=== PATIENT | female | born 1980 | race Caucasian/White ===

== ENCOUNTER → 2021-04-24 | Day surgery (SDC) | payer OTHER ==
[~2021-04-24] VITALS: Ht 157.5 cm; Wt 77.1 kg
[~2021-04-24] MED LIST: ACETAMINOPHEN500 M1 PO; BRIN10TA PO; COLACE100 MG PO; MIRALAX17 GM PO; MOTRIN600 MG PO; NORCO 5-325 TA1 EACH PO; OXY-IR 5MG5 MG PO; VENTOLIN HFA IN18 GM INH
== END | disposition home or self-care (01) ==
LOC: FAS 07:05
DX: Z12.11 Encounter for screening for malignant neoplasm of colon (principal); A63.0 Anogenital (venereal) warts; K29.80 Duodenitis without bleeding; K29.70 Gastritis, unspecified, without bleeding; K31.9 Disease of stomach and duodenum, unspecified; F31.89 Other bipolar disorder; G43.709 Chronic migraine without aura, not intractable, without status migrainosus; M51.36 Other intervertebral disc degeneration, lumbar region; F17.210 Nicotine dependence, cigarettes, uncomplicated; Z80.0 Family history of malignant neoplasm of digestive organs; Z88.8 Allergy status to other drugs, medicaments and biological substances
CPT/HCPCS: 43239; 46924; G0105; 84703; J0690; J1100; J1644; J2250; J2405; J2704; J2710; J3010; J7120

== ENCOUNTER 2021-05-23 10:45 | Emergency (ER) | payer OTHER ==
[2021-05-23 11:31] LABS: BILIRUBIN NEGATIVE (NEGATIVE); BLOOD NEGATIVE Ery/uL (NEGATIVE); CLARITY CLEAR (CLEAR); COLOR YELLOW (YELLOW); GLUCOSE (U) NORMAL (NORMAL); LEUKOCYTES NEGATIVE Leu/uL (NEGATIVE); NITRITE NEGATIVE (NEGATIVE); PROTEIN NEGATIVE (NEGATIVE); SPECIFIC GRAVITY 1.015 (1.001-1.030); UROBILINOGEN 0.2 mg/dL (0.2-1.0)
[2021-05-23 11:33] LABS: AMPHETAMINES NEGATIVE (NEGATIVE); BARBITURATES NEGATIVE (NEGATIVE); ECSTASY (MDMA) NEGATIVE (NEGATIVE); MARIJUANA (THC) NEGATIVE (NEGATIVE); METHADONE NEGATIVE (NEGATIVE); OPIATES NEGATIVE (NEGATIVE); OXYCODONE NEGATIVE (NEGATIVE)
[2021-05-23 11:33] LABS: BASOPHIL 0.5 % (0-2); EOSINOPHIL 0.9 % (0-5); HCT 45.1 % (37.0-47.0); HGB 14.9 g/dl (12.5-16.0); LYMPHOCYTE 31.1 % (15-48); MCV 87.9 fL (78.0-100.0); MONOCYTE 4.5 % (0-12); NEUTROPHIL 62.8 % (41-80); NRBC 0; PLT 283 K/uL (150-400); RBC 5.13 M/uL (4.20-5.40); RDW 13.3 % (11.5-14.0); WBC 9.5 K/uL (4.0-10.5)
[2021-05-23 11:50] LABS: ALBUMIN 3.6 g/dL (3.4-5.0); BILIRUBIN - TOTAL 0.5 mg/dL (0.2-1.0); BUN/CREAT RATIO (CALC) 10.7 RATIO; CREATININE 0.84 mg/dL (0.51-0.95); GLOBULIN (CALCULATION) 3.9 g/dL; POTASSIUM 3.8 mmol/L (3.5-5.1); TOTAL PROTEIN 7.5 g/dL (6.4-8.2)
[2021-05-23 12:45] LABS: CORONAVIRUS 2019 SARS-COV-2 NEGATIVE (NEGATIVE); INFLUENZA A NAA NEGATIVE (NEGATIVE)
[2021-05-23] MEDS ORDERED: DICYCLOMINE HCL20 MG PO (12:47)
[2021-05-23] MEDS ORDERED: ONDANSETRON ODT4 MG PO (12:49)
== END 2021-05-23 13:10 | disposition home or self-care (01) ==
LOC: FER 10:45
PROVIDERS: Internal Medicine
DX: R10.13 Epigastric pain (principal); R11.0 Nausea; J45.909 Unspecified asthma, uncomplicated; F17.210 Nicotine dependence, cigarettes, uncomplicated; Z88.8 Allergy status to other drugs, medicaments and biological substances; Z20.822 Contact with and (suspected) exposure to COVID-19
CPT/HCPCS: 36415; 71045; 80053; 80305; 81003; 83690; 84145; 84484; 85025; 93005; J2270; J2405; J2930; U0002